=== PATIENT | female | born 1940 | race Caucasian/White ===

== ENCOUNTER 2018-06-02 15:13 | Emergency (ER) | payer MEDICARE, OTHER ==
[~2018-06-02] VITALS: Ht 127 cm; Wt 68.1 kg
[2018-06-02 15:22] VITALS: Ht 127 cm; Wt 68.1 kg
[2018-06-02] MEDS ORDERED: SOD CHLORIDE 0.9% 500 ML IV STA (15:28)
[2018-06-02] MEDS ORDERED: ONDANSETRON 4 MG INJ IV STA (15:28)
[2018-06-02] MEDS ORDERED: METF500T24 PO (15:49)
[2018-06-02] MEDS ORDERED: GABA300C16 PO (15:49)
[2018-06-02] MEDS ORDERED: AMLO-147 PO (15:50)
[2018-06-02] MEDS ORDERED: IBUP-1542 PO (15:50)
[2018-06-02] MEDS ORDERED: LINA290C PO (15:52)
--- NOTE | 2018-06-02 16:07 | ERD ---
ER Documentation Chief Complaint Chief Complaint Nausea and Emsis x 3 hrs; pt hypertensive at home with SBP in the "170" HPI 77-year-old woman brought in by EMS from home for complaints of nausea, vomiting, and elevated blood pressure after lighting and smelling frankincense at home. She states her blood pressure at home was above 200 mmHg systolic. She had a few episodes of clear nonbloody nonbilious emesis. She denies chest pain or shortness of breath, no diarrhea, no abdominal pain, no headache or blurry vision. Patient was transported here by EMS nauseous but otherwise without complications ROS All systems reviewed and are negative except as per history of present illness. Medications Home Meds Active Scripts Ondansetron Hcl* (Zofran*) 4 Mg Tablet, 4 MG PO Q6H for NAUSEA AND/OR VOMITING, #15 TAB Prov:CANDY JOY MD 06/02/18 Reported Medications Linaclotide (LINZESS) 290 Mcg Capsule, 290 MCG PO DAILY PRN for NEEDED, #30 CAP 06/02/18 Amlodipine Besylate* (Amlodipine Besylate*) 10 Mg Tablet, 10 MG PO DAILY, #30 TAB 06/02/18 Ibuprofen* (Ibuprofen*) 600 Mg Tablet, 600 MG PO DAILY, TAB 06/02/18 Gabapentin* (Gabapentin*) 300 Mg Capsule, 300 MG PO DAILY, #60 CAP 06/02/18 Metformin Hcl* (Metformin Hcl*) 500 Mg Tablet, 250 MG PO WITH BREAKFAST DINNE, #60 TAB 06/02/18 Allergies Allergies: Coded Allergies: Penicillins (Unverified Allergy, Unknown, 06/02/18) ampicillin (Unverified Allergy, Unknown, 06/02/18) gentamicin (Unverified Allergy, Unknown, 06/02/18) Uncoded Allergies: ALL CILLINS (Allergy, Unknown, 06/02/18) PMhx/Soc Hypertension, obesity, diabetes mellitus History of Surgery: Yes ("Liver surgery," Appendectomy) Hx Cardiac Disorders: Yes (HTN) Hx Miscellaneous Medical Probl: Yes (DM) Hx Alcohol Use: No Hx Substance Use: No Hx Tobacco Use: No Smoking Status: Never smoker FmHx Family History: No diabetes Physical Exam Vitals Vital Signs Date Temp Pulse Resp B/P (MAP) Pulse Ox O2 O2 Flow FiO2 Time Delivery Rate 06/02/18 98.5 84 15 149/63 99 Room Air 16:54 (91) 06/02/18 98.1 97 23 165/77 98 15:22 (106) Physical Exam GENERAL: Well-developed, well-nourished, well-hydrated, nauseous, afebrile HEENT: Moist mucous membranes, pink conjunctiva, no cervical spine tenderness or step-off deformities, no goiter, no jaundice or icterus, extraocular movements intact without pain. No submandibular induration, and no pharyngeal erythema NEURO: Alert and oriented 3, cranial nerves II through XII intact bilaterally, pupils equal round reactive to light, no focal deficits or facial asymmetry, sensation intact distally Strength 5/5 in upper and lower extremities bilaterally CARDIAC: Regular rate and rhythm, no murmurs rubs or gallops LUNGS: Clear bilaterally no wheezing crackles or stridor ABDOMEN: Soft nontender, no guarding, no rigidity, no rebound, no psoas sign no obturator sign. Normoactive bowel sounds SKIN: Warm and dry to touch, no abrasions, contusions, or hematomas, no lacerations, no ecchymosis, no target lesions, and without ulcers EXTREMITIES: No clubbing cyanosis or edema, calves are bilaterally symmetrical, no Homans sign, no popliteal cord sign. Distal pulses equal and bilateral PSYCH: Normal affect without agitation or irritability Result Diagram: 06/02/18 1535 06/02/18 1535 Results 24 hrs Laboratory Tests Test 06/02/18 15:35 White Blood Count 11.6 10^3/ul Red Blood Count 4.47 10^6/ul Hemoglobin 13.1 g/dl Hematocrit 39.4 % Mean Corpuscular Volume 88.1 fl Mean Corpuscular Hemoglobin 29.3 pg Mean Corpuscular Hemoglobin Concent 33.2 g/dl Red Cell Distribution Width 13.0 % Platelet Count 233 10^3/UL Mean Platelet Volume 10.2 fl Immature Granulocytes % 0.600 % Neutrophils % 78.6 % Lymphocytes % 15.2 % Monocytes % 4.9 % Eosinophils % 0.4 % Basophils % 0.3 % Nucleated Red Blood Cells % 0.0 /100WBC Immature Granulocytes # 0.070 10^3/ul Neutrophils # 9.1 10^3/ul Lymphocytes # 1.8 10^3/ul Monocytes # 0.6 10^3/ul Eosinophils # 0.1 10^3/ul Basophils # 0.0 10^3/ul Nucleated Red Blood Cells # 0.0 10^3/ul Urine Color YELLOW Urine Clarity CLEAR Urine pH 6.0 Urine Specific [place] 1.019 Urine Ketones 1+ mg/dL Urine Nitrite NEGATIVE mg/dL Urine Bilirubin NEGATIVE mg/dL Urine Urobilinogen NEGATIVE mg/dL Urine Leukocyte Esterase TRACE Geraldine/ul Urine Microscopic RBC 1 /HPF Urine Microscopic WBC 1 /HPF Urine Hemoglobin NEGATIVE mg/dL Urine Glucose NEGATIVE mg/dL Urine Total Protein NEGATIVE mg/dl Sodium Level 137 mmol/L Potassium Level 3.7 mmol/L Chloride Level 101 mmol/L Carbon Dioxide Level 24 mmol/L Anion Gap 12 Blood Urea Nitrogen 25 mg/dl Creatinine 0.60 mg/dl Est Glomerular Filtrat Rate mL/min mL/min Glucose Level 168 mg/dl Calcium Level 9.8 mg/dl Total Bilirubin 0.6 mg/dl Direct Bilirubin 0.00 mg/dl Indirect Bilirubin 0.6 mg/dl Aspartate Amino Transf (AST/SGOT) 22 IU/L Alanine Aminotransferase (ALT/SGPT) 13 IU/L Alkaline Phosphatase 59 IU/L Troponin I < 0.012 ng/ml Total Protein 7.6 g/dl Albumin 4.6 g/dl Globulin 3.00 g/dl Albumin/Globulin Ratio 1.53 Lipase 201 U/L Current Medications Medications Dose Sig/Gwyn Start Time Status Last (Trade) Ordered Route PRN Stop Time Admin Dose Reason Admin Sodium 500 ml @ Q1H STAT 06/02/18 DC 06/02/18 Chloride 500 mls/hr IV 15:28 15:44 06/02/18 16:27 Ondansetron 4 mg ONCE STAT 06/02/18 DC 06/02/18 HCl (Zofran IV 15:28 15:44 Inj) 06/02/18 15:30 Procedures/MDM IV line was established patient was placed on warehouse sorter rhythm strip revealed a sinus rhythm at about 80 bpm with upright P and T waves. Patient was afebrile EKG performed, read by me revealed a normal sinus rhythm 89 bpm, normal axis, narrow QRS complex, no concerning ST elevations or depressions noted I administered 500 cc normal saline IV x1 and Zofran 4 mg IV CBC was unremarkable, electrolytes revealed dehydration with a BUN/creatinine of 25/0.6, liver function tests are normal, troponin was negative, urinalysis was unremarkable. Patient's initial hypertension resolved and she is asymptomatic now, she looks well and vital signs are normal. She will be discharged to follow-up with PMD. Differential diagnoses considered, included but not limited to acute coronary syndrome, pulmonary embolism, aortic dissection, abdominal aortic aneurysm, sepsis, stroke, meningitis, encephalitis, pneumonia, appendicitis, cholecystitis, bowel obstruction, pyelonephritis, nephrolithiasis, cystitis, as well as metabolic, hematologic, and electrolyte abnormalities. As well as abscess, cellulitis, fractures, and dislocations. Patient feels much better at this time, and vital signs are normal, symptoms have improved. I did give strict instructions to return to the ED if symptoms continue or worsen, patient will otherwise follow-up with primary care physician. Patient understood instructions and agreed to plan. Disclaimer: Inadvertent spelling and grammatical errors are likely due to EHR/dictation software use and do not reflect on the overall quality of patient care. Also, please note that the electronic time recorded on this note does not necessarily reflect the actual time of the patient encounter. Departure Diagnosis: Primary Impression: Vomiting Vomiting type: unspecified Vomiting Intractability: unspecified Nausea presence: with nausea Qualified Codes: R11.2 - Nausea with vomiting, unspecified Additional Impression: Hypertension Hypertension type: essential hypertension Qualified Codes: I10 - Essential (primary) hypertension Condition: CANDY Petty MD Jun 02, 2018 16:07
[2018-06-02] MEDS ORDERED: ONDA4TAB8 PO (16:30)
[2018-06-02 16:54] VITALS: BP 149/63; PULSE 84; RESP 15
== END 2018-06-02 17:08 | disposition home or self-care (01) ==
LOC: E/R 15:13
DX: R11.2 Nausea with vomiting, unspecified (principal); E11.9 Type 2 diabetes mellitus without complications; I10 Essential (primary) hypertension; E66.9 Obesity, unspecified; Z79.84 Long term (current) use of oral hypoglycemic drugs; Z68.41 Body mass index [BMI] 40.0-44.9, adult
CPT/HCPCS: 36415; 71045; 80053; 81001; 83690; 84484; 85025; 87086; 93005; 96374; 99285; J2405; J7040